=== PATIENT | female | born 1995 | race African-American/Black ===

== ENCOUNTER 2019-08-12 06:29 | Emergency (ER) | payer BC, OTHER ==
[~2019-08-12] VITALS: Ht 152.4 cm; Wt 43.1 kg
[~2019-08-12 06:29] MED LIST: ONDANSETRON HCL4 M2 PO
[2019-08-12] MEDS ORDERED: TYLENOL EXTRA500 MG PO (08:34)
[2019-08-12] MEDS ORDERED: IBUPROFEN 600600 M1 PO (08:34)
[2019-08-12 09:03] LABS: URINE BILIRUBIN NEGATIVE (Negative); URINE BLOOD 3+ (Negative); URINE CLARITY CLEAR; URINE COLOR YELLOW; URINE GLUCOSE-RANDOM* NEGATIVE (Negative); URINE KETONES 2+ (Negative); URINE LEUKOCYTES-REFLEX NEGATIVE (Negative); URINE NITRITE-REFLEX NEGATIVE (Negative); URINE PROTEIN (DIPSTICK) NEGATIVE (Negative); URINE UROBILINOGEN 0.2 E.U./dl (0.2-1.0)
[2019-08-12 09:20] LABS: BACTERIA-REFLEX 1-9 Few /HPF (None Seen); CASTS None Seen /LPF (None Seen); CRYSTALS None Seen /LPF (None Seen); SQUAMOUS 4-10 Moderate /LPF (0-3); URINE WBC-REFLEX 0-5 Rare /HPF (0-5)
[2019-08-12] MEDS ORDERED: TESSALON PERLE100 MG PO (09:24)
[2019-08-12 09:32] VITALS: BP 98/58
== END 2019-08-12 09:37 | disposition home or self-care (01) ==
LOC: ER 06:29
PROVIDERS: Emergency Medicine Emergency Medical Services
DX: J10.1 Influenza due to other identified influenza virus with other respiratory manifestations (principal); R51 Headache

== ENCOUNTER 2020-07-25 16:29 | Emergency (ER) | payer BC ==
[~2020-07-25] VITALS: Ht 152.4 cm; Wt 42.6 kg
[~2020-07-25 16:29] MED LIST changes: +IBUPROFEN 600600 M1 PO; +TESSALON PERLE100 MG PO; +TYLENOL EXTRA500 MG PO
[2020-07-25] MEDS ORDERED: ENBRACE HR SOF1 EACH PO (16:41)
[2020-07-25 17:01] LABS: ABSOLUTE NEUTROPHILS 5.9 thou/uL (1.4-8.2); BASOPHILS 0.4 % (0.0-2.0); EOSINOPHILS 0.8 % (0.0-3.0); HEMATOCRIT 33.9 % (37.0-47.0); HEMOGLOBIN 11.4 gm/dL (12.0-15.0); LYMPHOCYTES 36.4 % (24.0-44.0); MCH 31.3 pg (26.0-34.0); MCHC 33.6 g/dL (28.0-37.0); MCV 93.3 fL (80.0-100.0); MONOCYTES 5.1 % (1.0-8.0); PLATELET COUNT 314 thou/uL (150-400); POLYS 57.3 % (36.0-66.0); RBC 3.63 mil/uL (4.20-5.00); RDW 12.7 % (10.5-14.5); WBC 10.3 thou/uL (4.0-11.0)
[2020-07-25 17:05] LABS: URINE BILIRUBIN NEGATIVE (Negative); URINE BLOOD 3+ (Negative); URINE CLARITY CLEAR; URINE COLOR YELLOW; URINE GLUCOSE-RANDOM* NEGATIVE (Negative); URINE KETONES 1+ (Negative); URINE LEUKOCYTES-REFLEX NEGATIVE (Negative); URINE NITRITE-REFLEX NEGATIVE (Negative); URINE PROTEIN (DIPSTICK) TRACE (Negative); URINE SPECIFIC GRAVITY >= 1.030 (1.005-1.035); URINE UROBILINOGEN 0.2 E.U./dl (0.2-1.0)
[2020-07-25 17:15] LABS: SQUAMOUS 4-10 Moderate /LPF (0-3)
[2020-07-25 17:16] LABS: BACTERIA-REFLEX 1-9 Few /HPF (None Seen); CASTS None Seen /LPF (None Seen); CRYSTALS None Seen /LPF (None Seen); MUCUS 0-3 Light strn/LPF (None Seen); URINE WBC-REFLEX 0-5 Rare /HPF (0-5)
[2020-07-25 17:16] LABS: CALCIUM 9.2 mg/dL (8.5-10.1); CREATININE 0.7 mg/dL (0.6-1.0); POTASSIUM 3.5 mmol/L (3.5-5.1)
[2020-07-25 18:54] VITALS: BP 104/70
== END 2020-07-25 19:02 | disposition home or self-care (01) ==
LOC: ER 16:29
PROVIDERS: Emergency Medicine; Physician Assistant
DX: O20.0 Threatened abortion (principal); O99.331 Smoking (tobacco) complicating pregnancy, first trimester; Z79.899 Other long term (current) drug therapy; Z3A.00 Weeks of gestation of pregnancy not specified